=== PATIENT | male | born 1995 | race Hispanic/Latino ===

== ENCOUNTER 2018-04-28 10:49 | Emergency (ER) | payer SELFPAY ==
[2018-04-28] MEDS ORDERED: Dexamethasone 4 MG TAB ONE (11:58)
[2018-04-28] MEDS ORDERED: Bicillin LA 1.2 MILLION UNITS/2 ML SYRINGE ONE ×2 (12:35→12:37)
[2018-04-28] MEDS ORDERED: Acetaminophen 500 MG TAB ONE (12:35)
[2018-04-28 12:43] LABS: #Lymphocytes 1.6 thou/uL (1.20-3.40); #Monocytes 0.8 thou/uL (0.11-0.59); #Neutrophils 8.6 thou/uL (1.40-6.50); %Basophils 0.2 % (0.0-1.0); %Lymphocytes 14.7 % (21.0-51.0); %Monocytes 7.1 % (0.0-10.0); %Neutrophils 77.9 % (42.0-75.0); Hemoglobin 15.6 g/dL (14.0-18.0); Mean Corpuscular HGB CONC 32.2 g/dL (32.0-36.0); Mean Corpuscular Hemoglobin 30.2 pg (27.0-31.0); Mean Corpuscular Volume 93.7 fL (78.0-98.0); Mean Platelet Volume 7.8 fL (7.4-10.4); Platelet Count 274 thou/uL (130-400); RBC Distribution Width 11.4 % (11.5-14.5); Red Blood Cell (RBC) Count 5.17 mill/uL (4.70-6.10)
[2018-04-28 13:06] LABS: ALT (SGPT) 60 U/L (8-55); AST (SGOT) 23 U/L (5-34); Albumin 4.3 g/dL (3.5-5.0); Alkaline Phosphatase 86 U/L (40-150); Anion Gap 15 mmol/L (10-20); BUN (Urea Nitrogen) 12 mg/dL (8.9-20.6); Bilirubin, Total 0.6 mg/dL (0.2-1.2); CK (CPK) 92 U/L (30-200); Calc. Creatinine Clearance 0 mL/min (70-130); Calcium 9.5 mg/dL (7.8-10.44); Carbon Dioxide 26 mmol/L (22-29); Chloride 101 mmol/L (98-107); Estimated GFR-MDRD Greater than 90; Globulin 3.9 g/dL (2.4-3.5); Glucose 96 mg/dL (70-105); Potassium 4.6 mmol/L (3.5-5.1); Protein, Total 8.2 g/dL (6.0-8.3); Sodium 137 mmol/L (136-145)
--- NOTE | 2018-04-28 13:10 | RAD ---
CHEST 1 VIEW: HISTORY: Chest pain, fever at home. FINDINGS: Heart size is normal. The lungs are clear. No pneumonia, edema, or pleural effusion. Mild biapical pleural thickening. IMPRESSION: No acute intrathoracic disease. No evidence for pneumonia. POS: [facility]
== END 2018-04-28 13:28 | disposition home or self-care (01) ==
LOC: ERS 10:49
DX: J02.9 Acute pharyngitis, unspecified (principal)
CPT/HCPCS: 36415; 71045; 80053; 82550; 84484; 85025; 87081; 87430; 93005; 96372; J0561; J8540